=== PATIENT | female | born 1990 | race Caucasian/White ===

== ENCOUNTER 2017-01-06 22:29 | Inpatient (IN) | payer OTHER ==
[2017-01-06 23:02] VITALS: BMI 27.9
[2017-01-06] MEDS ORDERED: Bicitra 30 ML UDCUP ONE (23:50)
[2017-01-06] MEDS ORDERED: CEFAZOLIN/Water 2 GM/20 ML SYRINGE ONE (23:50)
[2017-01-06] MEDS ORDERED: Morphine PF 1 MG/ML SYR ONE (23:55)
[2017-01-06] MEDS ORDERED: Ketorolac Tromethamine 30 MG/ML VIAL ONE (23:56)
[2017-01-06] MEDS ORDERED: Ondansetron HCl/PF 4 MG/2 ML Vial ONE (23:56)
[2017-01-06] MEDS ORDERED: Fentanyl 100 MCG/2 ML VIAL ONE (23:56)
[2017-01-06] MEDS ORDERED: Oxytocin 10 UNITS/ML VIAL ONE (23:56)
[2017-01-07] MEDS ORDERED: Promethazine HCl 25 MG/ML VIAL IM PRN ×4 (00:24→04:24)
[2017-01-07] MEDS ORDERED: Ondansetron HCl/PF 4 MG/2 ML Vial IVP PRN ×5 (00:24→04:24)
[2017-01-07] MEDS ORDERED: ePHEDrine/0.9% NaCl/PF SYRINGE 50 mg/10 ml ONE ×2 (00:36→14:17)
[2017-01-07] MEDS ORDERED: Bicitra 30 ML UDCUP PO SCH (00:45)
[2017-01-07] MEDS ORDERED: diphenhydrAMINE 50 MG/ML VIAL IVP PRN ×2 (00:45→04:24)
[2017-01-07] MEDS ORDERED: Eucerin (Mineral Oil/Petrolatum,White) 30 gm Jar TOP PRN ×2 (00:45→04:24)
[2017-01-07] MEDS ORDERED: Meperidine HCl/PF 25 MG/ML VIAL SLOW IVP PRN (00:45)
[2017-01-07] MEDS ORDERED: Ketorolac Tromethamine 30 MG/ML VIAL IVP SCH (00:45)
[2017-01-07] MEDS ORDERED: Ketorolac Tromethamine 30 MG/ML VIAL IVP PRN (00:45)
[2017-01-07] MEDS ORDERED: Promethazine HCl 25 MG SUPP PR PRN ×2 (00:45→04:24)
[2017-01-07] MEDS ORDERED: Naloxone HCl 0.4 mg/ml Vial IV PRN ×2 (00:45→04:24)
[2017-01-07] MEDS ORDERED: HYDROmorphone 2 MG/ML VIAL SLOW IVP PRN (00:45)
[2017-01-07] MEDS ORDERED: Communication Order-Pharmacy FS SCH ×2 (00:45→04:30)
[2017-01-07] MEDS ORDERED: CEFAZOLIN/Water 2 GM/20 ML SYRINGE SLOW IVP SCH (00:45)
[2017-01-07] MEDS ORDERED: Naloxone HCl 0.4 mg/ml Vial IVP PRN ×4 (00:45→04:24)
[2017-01-07] MEDS ORDERED: Oxytocin 10 UNITS/ML VIAL ONE (01:08)
[2017-01-07 01:11] LABS: Mean Platelet Volume 8.5 fL (7.4-10.4); Red Blood Cell (RBC) Count 3.65 mill/uL (4.20-5.40); White Blood Cell (WBC) Count 12.2 thou/uL (4.8-10.8)
[2017-01-07] MEDS ORDERED: LR / Pitocin 40 units/1000 ml 1,000 ML ONE (01:54)
[2017-01-07] MEDS: LR w/ Pitocin 40 units/1000 ML BAG IV SCH ×2 (02:39→05:10)
[2017-01-07] MEDS ORDERED: Meperidine HCl/PF 25 MG/ML VIAL ONE (02:43)
[2017-01-07] MEDS ORDERED: Lanolin Ointment 7 GM TUBE TOP PRN (03:50)
[2017-01-07] MEDS ORDERED: Zolpidem Tartrate 5 MG TAB PO PRN ×2 (03:50→16:30)
[2017-01-07] MEDS ORDERED: HYDROcodone/Acetaminophen 5/325 mg Tablet PO PRN ×2 (03:50)
[2017-01-07] MEDS ORDERED: Lactated Ringer's 1,000 ML IV SCH (03:50)
[2017-01-07] MEDS ORDERED: diphenhydrAMINE 25 MG CAP PO PRN (03:50)
[2017-01-07] MEDS ORDERED: Adacel (T-DAP) 0.5 ML VIAL IM ONE (03:50)
[2017-01-07] MEDS: Ketorolac Tromethamine 30 MG/ML VIAL IVP PRN ×2 (04:46→12:30)
--- NOTE | 2017-01-07 09:13 | OP ---
DATE OF SERVICE: 01/07/2017 ADMITTING DIAGNOSES: 1. A 26-year-old G1 at 36 and 6 weeks with premature rupture of membranes. 2. Prematurity, which will become a non-issue after midnight at the time of the surgery. 3. Breech presentation. 4. History of IVF for infertility. POSTOPERATIVE DIAGNOSES: 1. A 26-year-old G1 at 36 and 6 weeks with premature rupture of membranes. 2. Prematurity, which will become a non-issue after midnight at the time of the surgery. 3. Breech presentation. 4. History of IVF for infertility. 5. Liveborn male with weight unavailable at the time of delivery. GBS status unknown. SURGEON: Swapna Medrano M.D. GAME PROGRAMER: Hospitalist Dr. Camacho. ANESTHESIA: Spinal. ESTIMATED BLOOD LOSS: 400. ANTIBIOTICS: Ancef 2 grams. IV FLUIDS: Crystalloid. CLINICAL HISTORY: This patient is a 26-year-old G1, who presented at 36 and 6 weeks with a complaint of premature rupture of membranes at 9:00 p.m. earlier that day. The patient was also havin g some contractions. She was evaluated and noted to be 4 cm in breech presentation. The patient emmanuel cuba had a scheduled for 39 weeks for this condition. She was an IVF , but she amaya d an uneventful course. The patient was admitted and set for a primary low transverse cesa rean section. The risks, benefits, and possible complications of all were discussed and then at the time of the procedure it was after midnight the patient had made 37 weeks. DETAILS OF PROCEDURE: The patient was taken to the operating room where spinal anesthesia was obtain ed. She is laid in the supine position and tilted to the left. A Cantu catheter was placed using st erile procedure and doptones were obtained which were within normal limits. The patient had previous ly had a category 1 tracing. The patient was prepped and draped in the usual sterile fashion and aft er testing for adequate anesthesia, her was brought at bedside and a Pfannenstiel incision wa s made with a scalpel and carried down to the fascia with the Bovie cautery. The fascia was nicked i n the midline and this incision was extended bilaterally with sharp dissection. The Ryan clamps we re used x2 to elevate the superior edge of the fascia. The rectus muscles were then released from th e fascia with a combination of blunt and sharp dissection. The similar dissection procedure was done with the lower fascial border to dissect the rectus and pyramidalis muscles off. The rectus muscles were then in the midline and the peritoneum was entered with the surgeon's fingers and thi s incision was extended with traction. The bladder blade was then placed and sweep over the anterior surface of the uterus noted no adhesive disease. The bladder flap was then created and the bladder was dropped down further removing the bladder blade and placing this over the created flap. An incis ion was made with a scalpel in the lower uterine segment with the release of the muscular tissue. On ce the incision bridge the uterine cavity, the incision was extended and an amniotomy was performed w ith the Allis clamp for clear fluid. The surgeon's hand was placed into the abdomen and the bu ttocks were brought through the incision. The legs were delivered followed by the anterior shoulder, then the posterior shoulder, and then the head was tucked by placing the surgeon's finger inside the mouth and tacking the head down. After delivery of the head, the was stimulated with wiping of the towel. It was noted that there was a loose true knot in the cord. The cord blood was obtaine d after doubly clamping and cutting the umbilical cord and sending the off to the neonatology physician in attendance to delivery. The infant both urinated and had meconium with the delivery at the bottom. The placenta was then manually extracted and removed from the field. The uterus was ext eriorized and cleansed of all debris with two dry laps. The incision was then closed in a running lo cking fashion x2 with excellent hemostasis. The bladder flap was reapproximated with a 3-0 Monocryl and the gutters were cleansed of all debris with irrigation. The Seprafilm was placed over the anter ior surface of the uterus and the uterus was then dried and placed back into the pelvis. The periton eum was then closed in a running fashion and then interrupted sutures were used to reapproximate the rectus muscles. Once this was completed, the prefascial borders were cleansed of any debris and the fascia was sutured in a running fashion with complete closure noted. The subcutaneous tissue was the n irrigated and Bovie cautery was used to correct any bleeding. Minimal bleeding was noted. A 2-0 p any gut sutures were used with interrupted ties to close the space and then a 4-0 Monocryl was used to close the skin. Dermabond was used over the skin and once the Dermabond dried, a pressure dr sarina was placed. The patient tolerated the procedure well. Again, she had a liveborn male infant with Apgars and weight not available at the time of the dictation. The patient did well during surge ry and was able to be sent to the recovery room in satisfactory condition. All needle, sponge, lap, and instrument counts were correct x2 at the end of the procedure. There were no other issues surrou nding this delivery.
[2017-01-07] MEDS: Docusate (Surfak) 240 MG CAP PO SCH ×2 (09:43→20:02)
[2017-01-07] MEDS: Simethicone Chewable 80 MG TAB PO PRN ×2 (09:43→20:03)
[2017-01-07] MEDS: Prenatal Vitamin 1 TAB PO SCH (09:43)
[2017-01-07] MEDS ORDERED: Ketorolac Tromethamine 30 MG/ML VIAL ONE (14:17)
[2017-01-07] MEDS ORDERED: Ondansetron HCl/PF 4 MG/2 ML Vial ONE (14:17)
[2017-01-07] MEDS: HYDROcodone/Acetaminophen 5/325 mg Tablet PO PRN ×2 (15:27→20:02)
[2017-01-07] MEDS: Ibuprofen 800 MG TAB PO SCH (22:18)
[2017-01-08] MEDS: Ibuprofen 800 MG TAB PO SCH ×3 (05:01→21:47)
[2017-01-08 05:52] LABS: Hematocrit 26.6 % (36.0-47.0)
[2017-01-08] MEDS ORDERED: Ibuprofen 800 MG TAB PO SCH (06:00)
[2017-01-08] MEDS: Prenatal Vitamin 1 TAB PO SCH (09:21)
[2017-01-08] MEDS: Docusate (Surfak) 240 MG CAP PO SCH ×2 (09:21→19:59)
[2017-01-08] MEDS: Simethicone Chewable 80 MG TAB PO PRN (09:21)
[2017-01-08] MEDS: HYDROcodone/Acetaminophen 5/325 mg Tablet PO PRN ×3 (09:22→19:59)
[2017-01-09] MEDS: HYDROcodone/Acetaminophen 5/325 mg Tablet PO PRN ×2 (03:32→10:11)
[2017-01-09] MEDS: Ibuprofen 800 MG TAB PO SCH (05:44)
[2017-01-09 07:52] VITALS: BP 120/57; TEMP 98.3
[2017-01-09] MEDS: Prenatal Vitamin 1 TAB PO SCH (09:10)
[2017-01-09] MEDS: Docusate (Surfak) 240 MG CAP PO SCH (09:10)
== END 2017-01-09 12:55 | disposition home or self-care (01) | DRG 766 ==
LOC: L&D/OP 22:29 → L&D 23:22 → 3SW 01-07 03:33 → 3SE 01-08 16:50
PROVIDERS: ADMIT Obstetrics & Gynecology; ATTEND Obstetrics & Gynecology
PROC: 10D00Z1 Extraction of Products of Conception, Low, Open Approach (ICD-10-PCS; principal; 2017-01-07)
DX: O32.1XX0 Maternal care for breech presentation, not applicable or unspecified (principal); O99.824 Streptococcus B carrier state complicating childbirth; O75.82 Onset (spontaneous) of labor after 37 completed weeks of gestation but before 39 completed weeks gestation, with delivery by (planned) cesarean section; O42.013 Preterm premature rupture of membranes, onset of labor within 24 hours of rupture, third trimester; Z37.0 Single live birth; Z3A.36 36 weeks gestation of pregnancy
CPT/HCPCS: 36415; 76815; 85014; 85018; 85027; 86780; 86850; 86900; 86901; 87340; J1885; J2175; J2274; J2310; J2405; J2590; J3010

== ENCOUNTER 2018-11-20 01:37 | Inpatient (IN) | payer BC, OTHER ==
[2018-11-20 02:20] LABS: Amnisure Test RUPTURE DETECTED (No Rupture)
[2018-11-20 02:21] LABS: Amnisure Internal Control QC ACCEPTABLE (ACCEPTABLE)
[2018-11-20 02:25] VITALS: BMI 26.1
[2018-11-20 02:44] LABS: Hemoglobin 12.3 g/dL (12.0-16.0); Mean Corpuscular HGB CONC 35.8 g/dL (32.0-36.0); Mean Corpuscular Volume 92.1 fL (78.0-98.0); Mean Platelet Volume 8.3 fL (7.4-10.4); Platelet Count 290 thou/uL (130-400); RBC Distribution Width 11.7 % (11.5-14.5); Red Blood Cell (RBC) Count 3.72 mill/uL (4.20-5.40); White Blood Cell (WBC) Count 13.2 thou/uL (4.8-10.8)
[2018-11-20] MEDS ORDERED: Fentanyl 4 mcg/Bup 0.1% Cadd 100 ML ONE (02:44)
[2018-11-20] MEDS ORDERED: Lactated Ringer's 500 ML IV PRN (03:25)
[2018-11-20] MEDS ORDERED: Acetaminophen 325 MG TAB PO PRN (03:25)
[2018-11-20] MEDS ORDERED: Promethazine HCl 25 MG/ML VIAL IM PRN (03:25)
[2018-11-20] MEDS ORDERED: Ondansetron PF 4 MG/2 ML Vial IVP PRN ×2 (03:25→08:30)
[2018-11-20] MEDS ORDERED: Naloxone HCl 0.4 mg/ml Vial IVP PRN ×2 (03:25)
[2018-11-20] MEDS ORDERED: diphenhydrAMINE 50 MG/ML VIAL IVP PRN (03:25)
[2018-11-20] MEDS ORDERED: ePHEDrine/0.9% NaCl/PF SYRINGE 50 mg/10 ml SLOW IVP PRN (03:25)
[2018-11-20] MEDS ORDERED: Penicillin G Potassium 5 MILL.UNITS VIAL ONE (03:29)
[2018-11-20] MEDS ORDERED: Fentanyl 4 mcg/Bupivacaine 0.1% Cassette 100 ML EPIDURAL SCH (03:30)
[2018-11-20] MEDS ORDERED: Communication Order-Pharmacy FS SCH (03:30)
[2018-11-20 03:32] LABS: HBSAg Index 0.14 S/CO (0-0.99); Hep B Surf Ag Non-Reactive S/CO (NonReactive)
[2018-11-20 04:46] LABS: Syphilis Antibody Nonreactive (Nonreactive); Syphilis Antibody Index 0.06 S/CO (<1.00 Non-Reactive)
[2018-11-20] MEDS ORDERED: Acetaminophen 500 MG TAB PO SCH (06:00)
[2018-11-20] MEDS ORDERED: Penicillin G 2.5 MILL.units 50 ML ONE (06:38)
[2018-11-20] MEDS ORDERED: NS / Oxytocin 40 units/1000ml 1,000 ML ONE ×2 (07:00→08:34)
[2018-11-20] MEDS ORDERED: Lidocaine 1% (PF) 30 ML VIAL ONE (07:00)
[2018-11-20] MEDS ORDERED: hydrALAZINE 20 MG/ML VIAL SLOW IVP PRN (08:30)
[2018-11-20] MEDS ORDERED: diphenhydrAMINE 25 MG CAP PO PRN (08:30)
[2018-11-20] MEDS ORDERED: Bisacodyl 10 MG SUPP PR PRN (08:30)
[2018-11-20] MEDS ORDERED: Zolpidem Tartrate 5 MG TAB PO PRN (08:30)
[2018-11-20] MEDS ORDERED: Preparation H Ointment 28 GM TUBE PR PRN (08:30)
[2018-11-20] MEDS ORDERED: Lanolin Ointment 7 GM TUBE TOP PRN (08:30)
[2018-11-20] MEDS ORDERED: Adacel (T-DAP) 0.5 ML SYRINGE IM ONE (08:30)
[2018-11-20] MEDS ORDERED: NS / Oxytocin 40 units/1000ml 1,000 ML IV SCH (08:30)
[2018-11-20] MEDS ORDERED: Benzocaine-Menthol 82.5 ML CAN TOP PRN (08:30)
[2018-11-20] MEDS ORDERED: Milk Of Magnesia 30 ML UDCUP PO PRN (08:30)
[2018-11-20] MEDS ORDERED: Bupivacaine/Epinephrine 0.25% 30 ML VIAL ONE (09:00)
[2018-11-20] MEDS: Acetaminophen/Codeine 30-300mg Tablet PO PRN ×3 (11:32→20:31)
[2018-11-20] MEDS: Prenatal Vitamin 1 TAB PO SCH (11:43)
[2018-11-20] MEDS: Docusate Calcium (SURFAK) 240 MG CAP PO SCH ×2 (11:44→21:55)
[2018-11-20] MEDS: Ibuprofen 800 MG TAB PO SCH ×2 (14:02→21:55)
[2018-11-20] MEDS ORDERED: FLU VACC QS2019-20(6MOS UP)/PF 60 MCG/0.5 ML SYRINGE IM ONE (21:00)
[2018-11-20] MEDS: Ferrous Sulfate 325 MG TAB PO SCH (21:47)
[2018-11-21] MEDS: Acetaminophen/Codeine 30-300mg Tablet PO PRN (01:41)
[2018-11-21] MEDS: Ibuprofen 800 MG TAB PO SCH ×3 (05:19→21:58)
[2018-11-21] MEDS: Prenatal Vitamin 1 TAB PO SCH (08:56)
[2018-11-21] MEDS: Ferrous Sulfate 325 MG TAB PO SCH ×2 (08:57→17:09)
[2018-11-21] MEDS: Docusate Calcium (SURFAK) 240 MG CAP PO SCH ×2 (08:58→21:58)
[2018-11-21] MEDS ORDERED: FLU VACC QS2019-20(6MOS UP)/PF 60 MCG/0.5 ML SYRINGE IM ONE (09:00)
[2018-11-22] MEDS: Ibuprofen 800 MG TAB PO SCH (05:26)
[2018-11-22] MEDS: Docusate Calcium (SURFAK) 240 MG CAP PO SCH (07:58)
[2018-11-22] MEDS: Prenatal Vitamin 1 TAB PO SCH (07:58)
[2018-11-22] MEDS: Ferrous Sulfate 325 MG TAB PO SCH (07:59)
[2018-11-22 08:12] VITALS: BP 118/68; TEMP 98.3
== END 2018-11-22 10:25 | disposition home or self-care (01) | DRG 807 ==
LOC: L&D/OP 01:37 → L&D 02:35 → 3SW 11:10
PROVIDERS: ADMIT Obstetrics & Gynecology; ATTEND Obstetrics & Gynecology
PROC: 10D07Z6 Extraction of Products of Conception, Vacuum, Via Natural or Artificial Opening (ICD-10-PCS; principal; 2018-11-20)
PROC: 0KQM0ZZ Repair Perineum Muscle, Open Approach (ICD-10-PCS; 2018-11-20)
PROC: 0W8NXZZ Division of Female Perineum, External Approach (ICD-10-PCS; 2018-11-20)
PROC: 3E0234Z Introduction of Serum, Toxoid and Vaccine into Muscle, Percutaneous Approach (ICD-10-PCS; 2018-11-20)
PROC: 3E02340 Introduction of Influenza Vaccine into Muscle, Percutaneous Approach (ICD-10-PCS; 2018-11-21)
DX: O60.14X0 Preterm labor third trimester with preterm delivery third trimester, not applicable or unspecified (principal); Z37.0 Single live birth; Z3A.36 36 weeks gestation of pregnancy; Z23 Encounter for immunization; O99.284 Endocrine, nutritional and metabolic diseases complicating childbirth; O34.219 Maternal care for unspecified type scar from previous cesarean delivery; E03.9 Hypothyroidism, unspecified; O75.81 Maternal exhaustion complicating labor and delivery; O76 Abnormality in fetal heart rate and rhythm complicating labor and delivery; O70.1 Second degree perineal laceration during delivery; Z79.890 Hormone replacement therapy; Z79.899 Other long term (current) drug therapy
CPT/HCPCS: 36415; 84112; 85027; 86780; 86850; 86900; 86901; 87340; 90471; 90686; G0008; J2001; J2405; J2540